=== PATIENT | male | born 1975 | race Caucasian/White ===

== ENCOUNTER 2021-06-18 06:55 | Inpatient (IN) ==
[2021-06-18] MEDS ORDERED: Ipratropium/Albuterol Neb 3 ML IH ONE (07:03)
[2021-06-18] MEDS ORDERED: methylPREDNISolone 125 MG/2 ML VIAL IVP ONE (07:08)
[2021-06-18] MEDS ORDERED: 0.9 % Sodium Chloride 1,000 ML IVC ONE (07:08)
[2021-06-18 08:18] LABS: Hemoglobin 13.5 g/dL (12.9-16.9); INR 1.4; Mean Corpuscular HGB Conc 35.5 g/dL (31.6-35.5); Mean Corpuscular Hemoglobin 30.1 pg (28.0-33.3); Mean Corpuscular Volume 84.8 fL (83.0-100.0); Mean Platelet Volume 10.1 fL (9.4-12.4); Platelet Count 290 K/mcL (140-400); Prothrombin Time 15.8 Seconds (9.4-12.1); Red Blood Count 4.48 M/mcL (4.19-5.50); Red Cell Distribution Width 12.8 % (11.5-14.5); White Blood Count 9.3 K/mcL (4.3-11.1)
[2021-06-18 08:20] LABS: Activated Partial Thrombo Time 29.2 Seconds (26.0-36.0)
[2021-06-18 08:35] LABS: Alanine Aminotransferase 35 Units/L (7-52); Albumin 3.6 g/dL (3.5-5.7); Albumin/Globulin Ratio 1.2 (1.1-2.2); Alkaline Phosphatase 66 Units/L (34-104); Aspartate Amino Transferase 32 Units/L (13-39); BUN/Creatinine Ratio 26 (6-26); Bilirubin,Direct 0.1 mg/dL (0.0-0.2); Bilirubin,Indirect 0.5 mg/dL (0.0-1.0); Bilirubin,Total 0.6 mg/dL (0.3-1.0); Blood Urea Nitrogen 25 mg/dL (6-20); Calcium 8.6 mg/dL (8.6-10.3); Carbon Dioxide 26 mEq/L (23-29); Chloride 96 mEq/L (98-107); Globulin 3.1 g/dL (2.4-3.5); Glucose 138 mg/dL (70-105); Lactate Dehydrogenase 306 Units/L (140-271); Osmolality,Calculated 281 (280-300); Phosphorous 2.6 mg/dL (2.7-4.5); Potassium 3.4 mEq/L (3.5-5.1); Sodium 132 mEq/L (136-145); Total Protein 6.7 g/dL (6.4-8.9); eGFR For African Americans > 60 (> 60); eGFR For Non-African Americans > 60 (> 60)
[2021-06-18 08:43] LABS: VBG HCO3 23 mEq/L (21-27); VBG PCO2 31 mmHg (41-51); VBG PH 7.48 pH Units (7.32-7.42); VBG PO2 191 mmHg (25-50)
[2021-06-18 08:45] LABS: Influenza A PCR Negative (Negative); Influenza B PCR Negative (Negative); Resp. Syncytial Virus PCR Negative (Negative)
[2021-06-18 08:59] LABS: SARS-CoV-2 by PCR (In House) Positive (Negative)
[2021-06-18 09:01] LABS: Lymphocytes # 1.2 K/mcL (0.6-4.6); Monocytes # 0.1 K/mcL (0.0-1.3)
[2021-06-18 09:02] LABS: Platelet Estimate Normal (Normal); Reactive Lymphocytes Present (Not Present)
[2021-06-18] MEDS ORDERED: Furosemide 20 MG/2 ML VIAL IVP ONE (09:15)
[2021-06-18] MEDS ORDERED: Naloxone 0.4 MG/ML INJ IVP PRN (09:33)
[2021-06-18] MEDS ORDERED: Ondansetron ODT 4 MG TAB.RAPDIS SL PRN (09:33)
[2021-06-18 09:37] LABS: Ferritin > 1500 ng/mL (20-250)
[2021-06-18] MEDS: *HR* LORazepam 2 MG/ML VIAL IVP ONE ×2 (09:53→22:33)
[2021-06-18] MEDS ORDERED: Isovue-370 500 ML BOTTLE IVP ONE (09:54)
[2021-06-18 10:26] LABS: Troponin I 0.03 ng/mL (< 0.04)
[2021-06-18] MEDS ORDERED: Remdesivir 200 MG in 0.9 % Sodium Chloride 100 ML IVPB ONE (12:22)
[2021-06-18 17:59] LABS: C-Reactive Protein 119 mg/L (Less than 10)
[2021-06-18] MEDS ORDERED: *HR* LORazepam 2 MG/ML VIAL IVP ONE (22:19)
[2021-06-19] MEDS ORDERED: *HR* Enoxaparin 40 MG/0.4 ML SYRINGE SQ SCH (06:00)
[2021-06-19 08:26] LABS: BUN/Creatinine Ratio 32 (6-26); Blood Urea Nitrogen 31 mg/dL (6-20); Calcium 8.7 mg/dL (8.6-10.3); Chloride 100 mEq/L (98-107); Glucose 180 mg/dL (70-105); Osmolality,Calculated 289 (280-300); Potassium 3.6 mEq/L (3.5-5.1); Sodium 134 mEq/L (136-145); eGFR For African Americans > 60 (> 60); eGFR For Non-African Americans > 60 (> 60)
[2021-06-19 08:27] LABS: Albumin 3.4 g/dL (3.5-5.7); Bilirubin,Direct 0.2 mg/dL (0.0-0.2); Bilirubin,Indirect 0.5 mg/dL (0.0-1.0); Bilirubin,Total 0.7 mg/dL (0.3-1.0); Globulin 3.3 g/dL (2.4-3.5); Total Protein 6.7 g/dL (6.4-8.9)
[2021-06-19] MEDS: Furosemide 20 MG/2 ML VIAL IVP SCH (09:23)
[2021-06-19 09:56] LABS: Carbon Dioxide 21 mEq/L (23-29)
[2021-06-19] MEDS: Remdesivir 100 MG in 0.9 % Sodium Chloride 100 ML IVPB SCH (14:11)
[2021-06-19] MEDS: *HR* Enoxaparin 40 MG/0.4 ML SYRINGE SQ SCH (18:19)
[2021-06-20] MEDS: *HR* Enoxaparin 40 MG/0.4 ML SYRINGE SQ SCH ×2 (04:31→17:23)
[2021-06-20 04:43] LABS: Hematocrit 39.5 % (37.5-50.1); Hemoglobin 13.4 g/dL (12.9-16.9); Mean Corpuscular HGB Conc 33.9 g/dL (31.6-35.5); Mean Corpuscular Hemoglobin 28.9 pg (28.0-33.3); Mean Corpuscular Volume 85.1 fL (83.0-100.0); Mean Platelet Volume 9.9 fL (9.4-12.4); Platelet Count 410 K/mcL (140-400); Red Blood Count 4.64 M/mcL (4.19-5.50); Red Cell Distribution Width 12.7 % (11.5-14.5)
[2021-06-20 04:44] LABS: White Blood Count 17.5 K/mcL (4.3-11.1)
[2021-06-20 04:52] LABS: Fibrinogen 683 mg/dL (169-393)
[2021-06-20 04:54] LABS: D-Dimer 906 ng/mLFEU (0-500)
[2021-06-20 05:03] LABS: Albumin 3.4 g/dL (3.5-5.7); Albumin/Globulin Ratio 1.2 (1.1-2.2); Bilirubin,Direct 0.2 mg/dL (0.0-0.2); Bilirubin,Indirect 0.5 mg/dL (0.0-1.0); Bilirubin,Total 0.7 mg/dL (0.3-1.0); Globulin 2.9 g/dL (2.4-3.5); Total Protein 6.3 g/dL (6.4-8.9)
[2021-06-20 05:05] LABS: Alanine Aminotransferase 61 Units/L (7-52); Albumin 3.5 g/dL (3.5-5.7); Albumin/Globulin Ratio 1.3 (1.1-2.2); Alkaline Phosphatase 62 Units/L (34-104); Aspartate Amino Transferase 32 Units/L (13-39); BUN/Creatinine Ratio 45 (6-26); Bilirubin,Total 0.7 mg/dL (0.3-1.0); Blood Urea Nitrogen 46 mg/dL (6-20); Calcium 8.7 mg/dL (8.6-10.3); Carbon Dioxide 25 mEq/L (23-29); Chloride 99 mEq/L (98-107); Globulin 2.8 g/dL (2.4-3.5); Glucose 190 mg/dL (70-105); Osmolality,Calculated 295 (280-300); Potassium 3.8 mEq/L (3.5-5.1); Sodium 134 mEq/L (136-145); Total Protein 6.3 g/dL (6.4-8.9); eGFR For African Americans > 60 (> 60); eGFR For Non-African Americans > 60 (> 60)
[2021-06-20] MEDS: Furosemide 20 MG/2 ML VIAL IVP SCH (08:54)
[2021-06-20] MEDS: Acetaminophen 325 MG TABLET PO PRN ×2 (11:48→21:28)
[2021-06-20] MEDS: Remdesivir 100 MG in 0.9 % Sodium Chloride 100 ML IVPB SCH (14:05)
[2021-06-20] MEDS ORDERED: TOCILIZUMAB 810 MG in 0.9 % Sodium Chloride 95.5 ML IVPB ONE (17:00)
[2021-06-21] MEDS: *HR* Enoxaparin 40 MG/0.4 ML SYRINGE SQ SCH ×2 (05:07→17:00)
[2021-06-21] MEDS: Acetaminophen 325 MG TABLET PO PRN (05:47)
[2021-06-21 07:05] LABS: D-Dimer 691 ng/mLFEU (0-500); Fibrinogen 501 mg/dL (169-393)
[2021-06-21 07:20] LABS: Alanine Aminotransferase 72 Units/L (7-52); Albumin 3.4 g/dL (3.5-5.7); Albumin/Globulin Ratio 1.3 (1.1-2.2); Alkaline Phosphatase 60 Units/L (34-104); Aspartate Amino Transferase 27 Units/L (13-39); BUN/Creatinine Ratio 43 (6-26); Bilirubin,Direct 0.2 mg/dL (0.0-0.2); Bilirubin,Indirect 0.5 mg/dL (0.0-1.0); Bilirubin,Total 0.7 mg/dL (0.3-1.0); Blood Urea Nitrogen 47 mg/dL (6-20); Calcium 8.4 mg/dL (8.6-10.3); Carbon Dioxide 24 mEq/L (23-29); Chloride 98 mEq/L (98-107); Globulin 2.7 g/dL (2.4-3.5); Glucose 192 mg/dL (70-105); Magnesium 2.4 mg/dL (1.6-2.6); Osmolality,Calculated 293 (280-300); Phosphorous 4.3 mg/dL (2.7-4.5); Potassium 3.7 mEq/L (3.5-5.1); Sodium 133 mEq/L (136-145); Total Protein 6.1 g/dL (6.4-8.9); eGFR For African Americans > 60 (> 60); eGFR For Non-African Americans > 60 (> 60)
[2021-06-21 07:34] LABS: Ferritin 995 ng/mL (20-250)
[2021-06-21] MEDS: Furosemide 20 MG/2 ML VIAL IVP SCH (09:17)
[2021-06-21 09:21] LABS: Basophils # 0.1 K/mcL (0.0-0.2); Basophils % 0.4 %; Hematocrit 39.7 % (37.5-50.1); Hemoglobin 13.4 g/dL (12.9-16.9); Lymphocytes # 1.9 K/mcL (0.6-4.6); Lymphocytes % 8.5 %; Mean Corpuscular HGB Conc 33.8 g/dL (31.6-35.5); Mean Corpuscular Hemoglobin 28.9 pg (28.0-33.3); Mean Corpuscular Volume 85.7 fL (83.0-100.0); Mean Platelet Volume 10.3 fL (9.4-12.4); Monocytes # 0.8 K/mcL (0.0-1.3); Monocytes % 3.8 %; Neutrophils # 18.3 K/mcL (1.6-8.9); Platelet Count 431 K/mcL (140-400); Red Blood Count 4.63 M/mcL (4.19-5.50); Red Cell Distribution Width 12.5 % (11.5-14.5); Segmented Neutrophils % 84.3 %; White Blood Count 21.7 K/mcL (4.3-11.1)
[2021-06-21] MEDS ORDERED: Dextrose Gel 15 GM/37.5 ML TUBE PO PRN ×2 (12:15)
[2021-06-21] MEDS ORDERED: *HR* Dextrose 50 % in Water (Vial) 50 ML VIAL IVP PRN (12:15)
[2021-06-21] MEDS ORDERED: D5% in Water 1,000 ML IVC PRN (12:15)
[2021-06-21] MEDS: Remdesivir 100 MG in 0.9 % Sodium Chloride 100 ML IVPB SCH (12:37)
[2021-06-21] MEDS: Insulin LISPRO 300 UNITS/3 ML VIAL SUBQ SCH (16:58)
[2021-06-22 01:44] LABS: Albumin 3.3 g/dL (3.5-5.7); Albumin/Globulin Ratio 1.2 (1.1-2.2); Bilirubin,Direct 0.2 mg/dL (0.0-0.2); Bilirubin,Indirect 0.4 mg/dL (0.0-1.0); Bilirubin,Total 0.6 mg/dL (0.3-1.0); Globulin 2.7 g/dL (2.4-3.5)
[2021-06-22 01:48] LABS: Alanine Aminotransferase 72 Units/L (7-52); Albumin 3.3 g/dL (3.5-5.7); Albumin/Globulin Ratio 1.2 (1.1-2.2); Alkaline Phosphatase 56 Units/L (34-104); Aspartate Amino Transferase 24 Units/L (13-39); BUN/Creatinine Ratio 39 (6-26); Bilirubin,Total 0.6 mg/dL (0.3-1.0); Blood Urea Nitrogen 40 mg/dL (6-20); Calcium 8.2 mg/dL (8.6-10.3); Carbon Dioxide 24 mEq/L (23-29); Chloride 98 mEq/L (98-107); Globulin 2.7 g/dL (2.4-3.5); Glucose 206 mg/dL (70-105); Magnesium 2.5 mg/dL (1.6-2.6); Osmolality,Calculated 290 (280-300); Phosphorous 4.1 mg/dL (2.7-4.5); Potassium 3.8 mEq/L (3.5-5.1); Sodium 132 mEq/L (136-145); eGFR For African Americans > 60 (> 60); eGFR For Non-African Americans > 60 (> 60)
[2021-06-22] MEDS: *HR* Enoxaparin 40 MG/0.4 ML SYRINGE SQ SCH ×2 (05:56→17:27)
[2021-06-22] MEDS: Insulin LISPRO 300 UNITS/3 ML VIAL SUBQ SCH ×3 (08:51→17:26)
[2021-06-22] MEDS: Furosemide 20 MG/2 ML VIAL IVP SCH (08:52)
[2021-06-22] MEDS: Remdesivir 100 MG in 0.9 % Sodium Chloride 100 ML IVPB SCH (13:15)
[2021-06-23] MEDS: *HR* Enoxaparin 40 MG/0.4 ML SYRINGE SQ SCH ×2 (05:34→17:29)
[2021-06-23 08:11] LABS: Albumin 3.7 g/dL (3.5-5.7); Albumin/Globulin Ratio 1.4 (1.1-2.2); Bilirubin,Direct 0.1 mg/dL (0.0-0.2); Bilirubin,Indirect 0.8 mg/dL (0.0-1.0); Bilirubin,Total 0.9 mg/dL (0.3-1.0); Globulin 2.6 g/dL (2.4-3.5); Total Protein 6.3 g/dL (6.4-8.9)
[2021-06-23] MEDS: Furosemide 20 MG/2 ML VIAL IVP SCH (09:06)
[2021-06-23] MEDS: Insulin LISPRO 300 UNITS/3 ML VIAL SUBQ SCH ×3 (12:30→17:31)
[2021-06-23] MEDS ORDERED: Insulin DETEMIR 100 UNIT/ML X5UNITS SUBQ SCH (21:00)
[2021-06-24] MEDS: *HR* Enoxaparin 40 MG/0.4 ML SYRINGE SQ SCH ×2 (04:42→19:48)
[2021-06-24] MEDS: Furosemide 20 MG/2 ML VIAL IVP SCH (07:44)
[2021-06-24] MEDS: Loratadine 10 MG TABLET PO SCH (07:49)
[2021-06-24 07:51] LABS: Hematocrit 40.7 % (37.5-50.1); Hemoglobin 14.4 g/dL (12.9-16.9); Mean Corpuscular HGB Conc 35.4 g/dL (31.6-35.5); Mean Corpuscular Hemoglobin 29.7 pg (28.0-33.3); Mean Corpuscular Volume 83.9 fL (83.0-100.0); Mean Platelet Volume 10.3 fL (9.4-12.4); Platelet Count 493 K/mcL (140-400); Red Blood Count 4.85 M/mcL (4.19-5.50); Red Cell Distribution Width 12.2 % (11.5-14.5); White Blood Count 25.7 K/mcL (4.3-11.1)
[2021-06-24] MEDS: Insulin LISPRO 300 UNITS/3 ML VIAL SUBQ SCH ×3 (07:53→15:49)
[2021-06-24 08:00] LABS: Alanine Aminotransferase 69 Units/L (7-52); Albumin 3.4 g/dL (3.5-5.7); Albumin/Globulin Ratio 1.4 (1.1-2.2); Alkaline Phosphatase 60 Units/L (34-104); Aspartate Amino Transferase 21 Units/L (13-39); BUN/Creatinine Ratio 33 (6-26); Bilirubin,Total 0.9 mg/dL (0.3-1.0); Blood Urea Nitrogen 37 mg/dL (6-20); Calcium 8.5 mg/dL (8.6-10.3); Carbon Dioxide 24 mEq/L (23-29); Chloride 97 mEq/L (98-107); Globulin 2.4 g/dL (2.4-3.5); Glucose 160 mg/dL (70-105); Magnesium 2.5 mg/dL (1.6-2.6); Osmolality,Calculated 286 (280-300); Phosphorous 4.2 mg/dL (2.7-4.5); Sodium 132 mEq/L (136-145); Total Protein 5.8 g/dL (6.4-8.9); eGFR For African Americans > 60 (> 60); eGFR For Non-African Americans > 60 (> 60)
[2021-06-24 10:19] LABS: Lymphocytes # 2.8 K/mcL (0.6-4.6); Monocytes # 0.5 K/mcL (0.0-1.3); Neutrophils # 22.1 K/mcL (1.6-8.9); Platelet Estimate Increased (Normal)
[2021-06-24] MEDS ORDERED: Ipratropium 1 PUFF INHALER IH PRN (17:25)
[2021-06-24] MEDS ORDERED: Insulin DETEMIR 100 UNIT/ML X5UNITS SUBQ SCH (21:00)
[2021-06-25 03:02] LABS: Basophils % 0.4 %; Hemoglobin 14.6 g/dL (12.9-16.9); Mean Platelet Volume 10.3 fL (9.4-12.4); Nucleated Red Blood Cells 0.1 /100 WBC (0)
[2021-06-25 03:04] LABS: Basophils # 0.1 K/mcL (0.0-0.2); Hematocrit 41.9 % (37.5-50.1); Immature Granulocytes % 4.1 % (0-4); Lymphocytes # 2.5 K/mcL (0.6-4.6); Lymphocytes % 9.2 %; Mean Corpuscular HGB Conc 34.8 g/dL (31.6-35.5); Mean Corpuscular Hemoglobin 29.2 pg (28.0-33.3); Mean Corpuscular Volume 83.8 fL (83.0-100.0); Monocytes # 1.2 K/mcL (0.0-1.3); Monocytes % 4.5 %; Platelet Count 467 K/mcL (140-400); Red Cell Distribution Width 12.5 % (11.5-14.5); Segmented Neutrophils % 81.8 %; White Blood Count 27.1 K/mcL (4.3-11.1)
[2021-06-25 03:18] LABS: Neutrophils # 22.2 K/mcL (1.6-8.9)
[2021-06-25 03:25] LABS: BUN/Creatinine Ratio 33 (6-26); Blood Urea Nitrogen 37 mg/dL (6-20); Calcium 8.4 mg/dL (8.6-10.3); Carbon Dioxide 23 mEq/L (23-29); Chloride 98 mEq/L (98-107); Glucose 170 mg/dL (70-105); Magnesium 2.5 mg/dL (1.6-2.6); Osmolality,Calculated 289 (280-300); Potassium 3.7 mEq/L (3.5-5.1); Sodium 133 mEq/L (136-145); eGFR For African Americans > 60 (> 60); eGFR For Non-African Americans > 60 (> 60)
[2021-06-25 03:32] LABS: Large Platelets Present (Not Present); Platelet Estimate Normal (Normal)
[2021-06-25] MEDS: *HR* Enoxaparin 40 MG/0.4 ML SYRINGE SQ SCH (05:25)
[2021-06-25 07:22] VITALS: BP 132/87; PULSE 74; TEMP 98.9; O2SAT 94
[2021-06-25] MEDS: Insulin LISPRO 300 UNITS/3 ML VIAL SUBQ SCH ×2 (07:54→12:31)
[2021-06-25] MEDS: Loratadine 10 MG TABLET PO SCH (08:38)
[2021-06-25] MEDS: Furosemide 20 MG/2 ML VIAL IVP SCH (08:39)
[2021-06-25] MEDS ORDERED: Metoprolol XL (24 HR) Succ 25 MG TAB.ER.24H PO SCH (09:45)
== END 2021-06-25 12:59 | disposition home health service (06) | DRG 177 ==
LOC: EMEROOARM 06:55 → 2NENU 06:55 → SUATTDRO 09:33 → 2NENU 11:34
PROVIDERS: ADMIT Internal Medicine; ATTEND Pharmacist